=== PATIENT | female | born 1960 | race African-American/Black ===

== ENCOUNTER 2021-02-13 08:31 | Emergency (ER) | payer OTHER ==
[~2021-02-13] VITALS: Ht 180.3 cm; Wt 68.5 kg
--- NOTE | 2021-02-13 08:35 | NUR ---
AT BEDSIDE FOR EVAL.
[2021-02-13 08:36] VITALS: BP 106/73
--- NOTE | 2021-02-13 09:25 | NUR ---
LANDON WRAP APPLIED ON THE L KNEE.
--- NOTE | 2021-02-13 09:27 | NUR ---
Patient discharged to home in stable condition. Written and verbal after care instructions given. Patient verbalizes understanding of instruction.
== END 2021-02-13 09:27 | disposition home or self-care (01) ==
LOC: ER 08:33
DX: S83.8X2A Sprain of other specified parts of left knee, initial encounter (principal); I10 Essential (primary) hypertension; W01.0XXA Fall on same level from slipping, tripping and stumbling without subsequent striking against object, initial encounter; Y93.89 Activity, other specified; Y92.512 Supermarket, store or market as the place of occurrence of the external cause; Y99.8 Other external cause status
CPT/HCPCS: 73564-TC